=== PATIENT | male | born 1955 | race Caucasian/White ===

== ENCOUNTER 2019-01-06 11:56 | Inpatient (IN) | payer OTHER ==
[~2019-01-06] VITALS: Ht 172.7 cm; Wt 53.1 kg
[2019-01-06] VITALS (8 sets, daily range): BP systolic 104–149; BP diastolic 48–74
--- NOTE | ~2019-01-06 | EKG ---
[place], [place] ELECTROCARDIOGRAM REPORT NAME: RENAN WEST UNIT #: [id number] ROOM: 412 DOCTOR: VIRGINIA DRAFT REPORT BIRTHDATE: [birth year] [facility] Test Date: 2019-01-06 Test Time: 15:08:17 Pat Name: RENAN WEST Department: Room: 412 Gender: M Photolithographer: : 1955 Requested By: JUVENAL MEJÍA Order Number: [id number] Reading MD: Babar Syed Measurements Intervals [place] Rate: 56 P: 10 [place]: 135 QRS: 62 QRSD: 96 T: 64 QT: 430 QTc: 416 Interpretive Statements Sinus rhythm Borderline low voltage, extremity leads Probable anteroseptal infarct, old Electronically Signed On 01-07-2019 9:00:29 PDT by Babar Syed CM:EKGRPT:ELECTROCARDIOGRAM REPORT 1508 0900 JUVENAL COLEMAN DRAFT REPORT JUVENAL MEJÍA M.D.
--- NOTE | ~2019-01-06 | EKG ---
[place], [place] ELECTROCARDIOGRAM REPORT NAME: RENAN WEST UNIT #: [id number] ROOM: 412 DOCTOR: VIRGINIA DRAFT REPORT BIRTHDATE: [birth year] [facility] Test Date: 2019-01-06 Test Time: 12:00:52 Pat Name: RENAN WEST Department: Room: 412 Gender: M Regulatory Affairs Associate: : 1955 Requested By: JVUENAL MEJÍA Order Number: [id number] Reading MD: Babar Syed Measurements Intervals [place] Rate: 62 P: 51 [place]: 133 QRS: 74 QRSD: 95 T: 63 QT: 413 QTc: 420 Interpretive Statements Sinus rhythm Probable anteroseptal infarct, old No previous ECG available for comparison Electronically Signed On 01-07-2019 9:00:08 PDT by Babar Syed CM:EKGRPT:ELECTROCARDIOGRAM REPORT 1200 0900 JUVENAL COLEMAN DRAFT REPORT JUVENAL MEJÍA M.D.
--- NOTE | ~2019-01-06 | ST ---
[place], [place] EXERCISE STRESS TEST REPORT NAME: RENAN WEST UNIT #: [id number] ROOM: 412 DOCTOR: FRANCINE CINTRON,MARTÍN BIRTHDATE: [birth year] DOS: 01/07/2019 LEXISCAN STRESS TEST REASON FOR TEST: Chest pain. PHYSICAL EXAMINATION NECK: Supple. LUNGS: Clear anteriorly. HEART: Regular rhythm. PROTOCOL: Lexiscan protocol. Maximum heart rate 95, peak blood pressure 116/50. SYMPTOMS: The patient is chest-pain free. EKG: Resting EKG shows sinus rhythm. Stress EKG showed no ischemia, no arrhythmias. CONCLUSION: Clinically, the patient is chest pain free. EKG nonischemic. POST-STRESS COMPLICATIONS: None. The patient received a total of 0.4 mg Lexiscan. MARTÍN ESCAMILLA MD CM:STRESS:EXERCISE STRESS TEST REPORT 1733 2311 MARTÍN ESCAMILLA MD
--- NOTE | ~2019-01-06 | EKG ---
[place], [place] ELECTROCARDIOGRAM REPORT NAME: RENAN WEST UNIT #: [id number] ROOM: 412 DOCTOR: VIRGINIA DRAFT REPORT BIRTHDATE: [birth year] [facility] Test Date: 2019-01-06 Test Time: 17:50:29 Pat Name: RENAN WEST Department: Room: 412 Gender: M Foam Fabricator: : 1955 Requested By: JUVENAL MEJÍA Order Number: [id number] Reading MD: Babar Syed Measurements Intervals [place] Rate: 62 P: 64 [place]: 142 QRS: 56 QRSD: 98 T: 62 QT: 411 QTc: 418 Interpretive Statements Sinus rhythm Borderline low voltage, extremity leads Probable anteroseptal infarct, old Electronically Signed On 01-07-2019 9:04:33 PDT by Babar Syed CM:EKGRPT:ELECTROCARDIOGRAM REPORT 1750 0904 JUVENAL COLEMAN DRAFT REPORT JUVENAL MEJÍA M.D.
--- NOTE | ~2019-01-06 | CON ---
[place], [place] REPORT OF CONSULTATION NAME: RENAN WEST UNIT #: [id number] ROOM: 412 DOCTOR: MARTÍN ESCAMILLA MD BIRTHDATE: [birth year] DOS: 01/07/2019 CARDIOLOGY CONSULTATION NOTE REASON FOR CONSULTATION: Chest pain. HISTORY OF PRESENT ILLNESS: The patient is a 63-year-old gentleman with history of tobacco use, acid reflux, and recent weight loss, was presented to the Emergency Room from the [facility] due to chest pain and some dizziness. He complained of intermittent chest pain for the past few weeks. Pain is both exertional and nonexertional. He had some associated shortness of breath. His pain did radiate to his right jaw and left shoulder. About a month ago, he was seen at [facility] for similar symptoms and was released home. He is fairly active at home. Denies any chest pain on physical exertion. He noticed that he had some dysphagia for solid foods recently, but no nausea, vomiting, diarrhea. No fever and chills. No cough or hemoptysis. No musculoskeletal symptoms. No bladder or bowel symptoms, no neurologic symptoms. He had no prior history of hypertension, diabetes or heart disease. Yesterday, he underwent an EGD by Dr. Clark and underwent dilatation of esophagus. REVIEW OF SYSTEMS: Review of 10 systems negative except as mentioned above. PAST MEDICAL HISTORY: 1. Acid reflux. 2. Recent weight loss. SOCIAL HISTORY: The patient does smoke cigarettes. Denies any alcohol or illicit drugs. PAST SURGICAL HISTORY: History of EGD, history of colonoscopy, history of tonsillectomy, history of surgery on the arm. FAMILY HISTORY: Father at the age 77 from cancer. Mother from bone cancer. ALLERGIES: No known drug allergies. HOME MEDICATIONS: Reviewed. PHYSICAL EXAMINATION: VITAL SIGNS: Blood pressure normal, pulse 63, respirations 20. BMI is 17.8. GENERAL: Alert, comfortable, in no acute distress. HEENT: Pupils are round and equal. No jaundice. NECK: Supple, no distended neck veins, no carotid bruit. CHEST: Symmetrical, nontender. LUNGS: Clear to auscultation bilaterally. HEART: Regular rhythm, no S3, no palpable thrills. ABDOMEN: Benign, nontender. Bowel sounds normal. EXTREMITIES: Showed no edema. Distal pulses palpable. SKIN: Warm and dry. No cyanosis, no clubbing. [place], [place] REPORT OF CONSULTATION NAME: RENAN WEST UNIT #: [id number] ROOM: [facility] DOCTOR: MARTÍN ESCAMILLA MD BIRTHDATE: [birth year] RECTAL: Deferred. GENITOURINARY: Deferred. NEUROLOGIC: Alert with no focal neurologic deficit. PSYCHIATRIC: Alert with good mood and affect. REVIEW OF THE DIAGNOSTIC TESTS: EKG showed normal sinus rhythm. CBC, chemistry unremarkable. Cardiac enzymes reviewed. IMPRESSION: 1. Chest pain, atypical, myocardial infarction ruled out. 2. Dysphagia, improved after esophageal dilatation yesterday. 3. Tobacco use. 4. Acid reflux. 5. Recent weight loss. RECOMMENDATIONS: 1. The patient scheduled for Lexiscan stress test today. 2. The patient is counseled to quit smoking. 3. His mild shortness of breath is likely from his underlying COPD. 4. If the stress test is unremarkable, the patient can be discharged home from a cardiac standpoint. MARTÍN ESCAMILLA MD CM:CONSTR:REPORT OF CONSULTATION 2134 01/22/19 0851 interface
--- NOTE | ~2019-01-06 | O ---
[place], [place] OPERATIVE NOTE NAME: RENAN WEST UNIT #: [id number] ROOM: 412 DOCTOR: RICHARD QUINTERO MD BIRTHDATE: [birth year] DOS: 01/06/2019 GASTROENDOSCOPIC REPORT INDICATION: The patient has presented with dysphagia, undergoing investigation, ruling out esophageal foreign body versus tumor. PROCEDURE: Today's procedure part of investigation is panendoscopy plus biopsy plus balloon dilation of esophagus. PREMEDICATION: Propofol. SCOPE: Olympus forward-viewing gastroscope Q10 video. REPORT: After putting the patient in left lateral position and application of lubricant to the scope, the scope was introduced. Thereafter, under direct visualization, advanced through the length of esophagus without difficulty. Gastric pouch was entered. Distal esophagitis secondary to reflux, small hiatal hernia was noted. Gastritis was seen. Antral biopsy was obtained. Duodenal patency assured. Scope was withdrawn back to the middle gastric pouch. Balloon size 20 was introduced in the gastric pouch. We were able to dilate the esophagus only to size 18 because of the stricture of upper esophagus. However, this overcame. The patient extubated, tolerated the procedure well. IMPRESSION: Benign upper esophageal stricture, status post balloon dilation to size 18, distal esophagitis, gastritis, small hiatal hernia. PLAN AND DISCUSSION: I will start this gentleman on 40 mg of omeprazole instead of 20. Elevation of the head of the bed 6-inch all time. Gaviscon as antacid of choice. Followup routinely with you in office. Thank you very much indeed. RICHARD QUINTERO MD CM:OPRECORD:OPERATIVE NOTE 1902 0006 RICHARD QUINTERO MD 01/07/19 0005 interface
--- NOTE | ~2019-01-06 | EKG ---
[place], [place] ELECTROCARDIOGRAM REPORT NAME: RENAN WEST UNIT #: [id number] ROOM: [facility] DOCTOR: VIRGINIA DRAFT REPORT BIRTHDATE: [birth year] [facility] Test Date: 2019-01-06 Test Time: 15:08:17 Pat Name: RENAN WEST Department: Patient ID: ELOH- Room: Gender: Fleet Coordinator: : 1955 Requested By: JUVENAL MEJÍA Order Number: [id number] Reading MD: Measurements Intervals [place] Rate: 56 P: 10 [place]: 135 QRS: 62 QRSD: 96 T: 64 QT: 430 QTc: 416 Interpretive Statements Sinus rhythm Borderline low voltage, extremity leads Probable anteroseptal infarct, old No previous ECG available for comparison CM:EKGRPT:ELECTROCARDIOGRAM REPORT 1508 1217 JUVENAL COLEMAN DRAFT REPORT
--- NOTE | ~2019-01-06 | CON ---
[place], [place] REPORT OF CONSULTATION NAME: RENAN WEST UNIT #: [id number] ROOM: 412 DOCTOR: RICHARD QUINTERO MD BIRTHDATE: [birth year] DOS: 01/06/2019 GASTROENDOSCOPIC REPORT HISTORY OF PRESENT ILLNESS: A 63-year-old patient who has presented with chief complaint of dysphagia and I have been asked for assessment of the patient in this regard. The patient has difficulty in upper esophagus with pain in swallowing as if the food gets stuck in the area. He has been admitted with white blood cell of 5, H and H of 15 and 47 with INR of 1.0. Comprehensive metabolic panel, GFR greater than 60. Chemistry normal. Chest x-ray, no acute cardiopulmonary pathology. Troponin 0.015. All has been noticed. PAST MEDICAL HISTORY: Associated with dysphagia, atypical chest pain, protein-calorie malnourished. PAST SURGICAL HISTORY: EGD, colonoscopies, bronchoscopy, minor surgeries, otherwise. FAMILY HISTORY: Noncontributory. ALLERGIES: To no known medications. MEDICATIONS: List was reviewed, chronic PPI therapy. REVIEW OF SYSTEMS: HEENT: Denies double vision, blurred vision. RESPIRATORY: Denies acute shortness of breath. CARDIOVASCULAR: Denies typical chest pain. DIGESTIVE SYSTEM: Epigastric distress, dysphagia. PHYSICAL EXAMINATION: GENERAL: Nontoxic patient. HEENT: Head normocephalic, nontraumatic. Mouth and buccal mucosa benign. NECK: Supple, no thyromegaly, no cervical lymphadenopathy. CHEST: Symmetric anatomy, equal expansion. No wheeze, no rhonchi. HEART: Normal sinus rhythm, no gallop, no murmur. ABDOMEN: Soft. No hepato-organomegaly. Bowel sounds present. No pulsatile mass. EXTREMITIES: No cyanosis, no pedal edema. NEUROLOGIC: Alert, oriented to time, place, person. LABORATORY DATA: Labs reviewed. Records reviewed. IMPRESSION: Esophageal dysphagia, ruling out upper esophageal pathology. PLAN AND DISCUSSION: We are going to organize endoscopic evaluation of upper GI tract. Other adjunctive diagnoses as outlined in paragraph of past medical, surgical history. Labs reviewed, records reviewed. [place], [place] REPORT OF CONSULTATION NAME: RENAN WEST UNIT #: [id number] ROOM: 412 DOCTOR: PILI QUINTERO MDROLLAH BIRTHDATE: [birth year] Thank you very much indeed. RICHARD QUINTERO MD CM:CONSTR:REPORT OF CONSULTATION 1902 01/07/19 0002 interface
--- NOTE | ~2019-01-06 | EKG ---
[place], [place] ELECTROCARDIOGRAM REPORT NAME: RENAN WEST UNIT #: ROOM: DOCTOR: EPIPHANY DRAFT REPORT BIRTHDATE: [birth year] [facility] Test Date: 2019-01-06 Test Time: 12:00:52 Pat Name: RENAN WEST Department: Patient ID: ELOH- Room: Gender: Bench Chemist: : 1955 Requested By: JUVENAL MEJÍA Order Number: [id number] Reading MD: Measurements Intervals [place] Rate: 62 P: 51 [place]: 133 QRS: 74 QRSD: 95 T: 63 QT: 413 QTc: 420 Interpretive Statements Sinus rhythm Probable anteroseptal infarct, old No previous ECG available for comparison CM:EKGRPT:ELECTROCARDIOGRAM REPORT 1200 2 JUVENAL COLEMAN DRAFT REPORT JUVENAL MEJÍA M.D.
[2019-01-06 12:35] LABS: BASO % 0.5 % (0.0-1.0); EOS # 0.1 10*3/uL (0.0-0.4); EOS % 1.9 % (1.0-4.0); HEMATOCRIT 47.5 % (42.0-52.0); HEMOGLOBIN 15.3 g/dl (14.0-18.0); LYMPH # 1.6 10*3/uL (1.3-4.4); LYMPH % 27.4 % (27.0-41.0); MEAN CORPUSCULAR HGB 29.3 pg (27.0-31.0); MEAN CORPUSCULAR HGB CONC 32.2 g/dl (33.0-37.0); MEAN PLATELET VOLUME 9.7 fl (9.6-12.3); MONO # 0.4 10*3/uL (0.1-1.0); MONO % 7.1 % (3.0-9.0); NEUT # 3.6 10*3/uL (2.3-7.9); NEUT % 62.9 % (47.0-73.0); PLATELET COUNT AUTOMATED 296 10*3/uL (130-400); RED BLOOD COUNT 5.22 10*6/uL (4.50-5.90); RED CELL DISTRI WIDTH 12.8 % (0-14.5); WHITE BLOOD COUNT 5.7 10*3/uL (4.8-10.8)
[2019-01-06 12:44] LABS: ACT PARTIAL THROMBO TIME 36.7 SECONDS (20.0-32.1)
[2019-01-06 12:52] LABS: ALBUMIN 3.3 gm/dl (3.1-4.5); ALKALINE PHOSPHATASE 104 U/L (45-117); BUN 8 mg/dl (7-24); CHLORIDE 106 mmol/L (98-107); POTASSIUM 4.4 mmol/L (3.5-5.1); SGOT/AST 10 IU/L (3-35); SGPT/ALT 16 U/L (12-78); SODIUM 141 mmol/L (136-145); TOTAL PROTEIN 7.1 gm/dL (6.4-8.2)
[2019-01-06 12:57] LABS: TROPONIN I < 0.015 ng/ml (<0.045)
[2019-01-06] MEDS ORDERED: TOPCARE OMEPRAZ20 MG PO (14:54)
[2019-01-06] MEDS ORDERED: WELLBUTRIN SR200 MG PO (14:55)
[2019-01-07] VITALS: BP 128/73
[2019-01-07 07:50] LABS: BASO % 0.3 % (0.0-1.0); EOS # 0.1 10*3/uL (0.0-0.4); EOS % 1.9 % (1.0-4.0); HEMATOCRIT 48.9 % (42.0-52.0); HEMOGLOBIN 15.8 g/dl (14.0-18.0); LYMPH # 1.6 10*3/uL (1.3-4.4); LYMPH % 27.6 % (27.0-41.0); MEAN CELL VOLUME 92.1 fl (80.0-94.0); MEAN CORPUSCULAR HGB 29.8 pg (27.0-31.0); MEAN CORPUSCULAR HGB CONC 32.3 g/dl (33.0-37.0); MEAN PLATELET VOLUME 9.7 fl (9.6-12.3); MONO # 0.4 10*3/uL (0.1-1.0); MONO % 7.3 % (3.0-9.0); NEUT # 3.7 10*3/uL (2.3-7.9); NEUT % 62.7 % (47.0-73.0); PLATELET COUNT AUTOMATED 274 10*3/uL (130-400); RED BLOOD COUNT 5.31 10*6/uL (4.50-5.90); RED CELL DISTRI WIDTH 12.9 % (0-14.5); WHITE BLOOD COUNT 5.9 10*3/uL (4.8-10.8)
[2019-01-07 08:00] VITALS: BP 126/70
[2019-01-07 08:19] LABS: ALBUMIN 3.2 gm/dl (3.1-4.5); ALKALINE PHOSPHATASE 103 U/L (45-117); BUN 11 mg/dl (7-24); CHLORIDE 109 mmol/L (98-107); CHOLESTEROL 145 mg/dL (<200); CREATININE 0.81 mg/dL (0.70-1.30); FREE T4 1.09 ng/dl (0.76-1.46); HDL CHOLESTEROL 37 mg/dl (40-60); LDL CHOLESTEROL 92 mg/dL (9-159); PHOSPHOROUS 2.9 mg/dL (2.5-4.9); POTASSIUM 4.5 mmol/L (3.5-5.1); SGOT/AST 14 IU/L (3-35); SGPT/ALT 18 U/L (12-78); SODIUM 143 mmol/L (136-145); TOTAL PROTEIN 7.4 gm/dL (6.4-8.2); TRIGLYCERIDES 79 mg/dl (<150); VLDL CHOLESTEROL 16 mg/dL (6-40)
[2019-01-07 08:23] LABS: THYROID STIM HORMONE (HS) 0.935 uIU/ml (0.358-4.75)
[2019-01-07 08:47] LABS: VITAMIN D, 25-HYDROXY 31.8 ng/mL (30-100)
[2019-01-07 12:00] VITALS: BP 115/67
[2019-01-07] MEDS ORDERED: OMEPRAZOLE MAGN20 MG PO (15:40)
[2019-01-07] MEDS ORDERED: NICODERM T (15:40)
[2019-01-07 16:00] VITALS: BP 114/62
== END 2019-01-07 18:04 | disposition home or self-care (01) | DRG 392 ==
LOC: ED 11:56 → 4E 13:54 → EDHOLD 13:54 → 4E 14:12
PROVIDERS: Emergency Medicine; Registered Nurse; ADMIT Internal Medicine
DX: K21.0 Gastro-esophageal reflux disease with esophagitis (principal); E44.0 Moderate protein-calorie malnutrition; Z68.1 Body mass index [BMI] 19.9 or less, adult; K22.2 Esophageal obstruction; K44.9 Diaphragmatic hernia without obstruction or gangrene; K29.70 Gastritis, unspecified, without bleeding; F17.210 Nicotine dependence, cigarettes, uncomplicated; Z80.0 Family history of malignant neoplasm of digestive organs; Z80.8 Family history of malignant neoplasm of other organs or systems; Z79.899 Other long term (current) drug therapy; Z71.6 Tobacco abuse counseling